=== PATIENT | female | born 1980 | race Caucasian/White ===

== ENCOUNTER → 2025-03-26 10:06 | Outpatient (BNVA) | payer BC, SELFPAY | PROVIDERS: Visit Provider Nurse Practitioner | DX: R30.0 Dysuria (principal); R35.0 Frequency of micturition | CPT/HCPCS: 81000; 87086 ==

== ENCOUNTER 2025-03-31 09:42 | Emergency (ER) | payer BC, SELFPAY ==
[2025-03-31 09:58] VITALS: BP 148/87; PULSE 87; RESP 14; TEMP 36.8; O2SAT 99; BMI 20.1
[2025-03-31 10:05] VITALS: BP 148/87; PULSE 87; RESP 14; O2SAT 99
--- NOTE | 2025-03-31 10:07 | XRR_ITS ---
PROCEDURE INFORMATION: Exam: XR Abdomen Exam date and time: 03/31/2025 10:19 AM Age: 44 years old Clinical indication: Abdominal pain; Prior surgery; Surgery date: 6+ months; Surgery type: Hysterectomy; Abd pain x 1 week; Nausea TECHNIQUE: Imaging protocol: Radiologic exam of the abdomen. Views: 2 Views. Upright and supine views. COMPARISON: No relevant prior studies available. FINDINGS: Gastrointestinal tract: Normal. No bowel dilation. Intraperitoneal space: Normal. No free air. Bones/joints: Unremarkable for age. XR/XR acute abdomen series [id number] IMPRESSION: No acute findings.
[2025-03-31 10:25] LABS: Basophils % 0.4 %; Eosinophils % 0.4 %; Hematocrit 44.7 % (36-47); Lymphocytes # 1.3 10^3/uL (0.8-4.8); Lymphocytes % 19.2 %; Mean Corpuscular HGB Conc 31.5 g/dL (30-55); Mean Corpuscular Hemoglobin 30.9 pg (27-33); Mean Corpuscular Volume 97.8 fl (85-98); Mean Platelet Volume 9.1 fL (7.4-10.4); Monocytes # 0.4 10^3/uL (0.2-0.9); Monocytes % 5.8 %; Neutrophils # 4.92 10^3/uL (1.8-7.7); Neutrophils % 73.9 %; Nucleated Red Blood Cells % 0 %; Platelet Count 327 10^3/cmm (157-399); Red Blood Count 4.57 10^6/uL (3.85-5.65); Red Cell Distribution Width 12.7 % (12.1-15.1); White Blood Count 6.67 10^3/uL (3.29-11.43)
[2025-03-31 10:30] LABS: Bilirubin Urine Negative (Negative); Blood Urine Negative (Negative); Glucose Urine UA Negative (Normal); Ketones Urine Negative (Negative); Leukocyte Esterase Urine Negative (Negative); Nitrate Urine Positive (Negative); Protein Urine Negative (Negative); Specific Gravity, Urine 1.007 (1.005-1.030); Urine Appearance Clear (CLEAR); Urine Color Dark Yellow (Yellow); Urobilinogen Urine 0.2 mg/dL (Negative)
[2025-03-31 10:35] LABS: Add Urine Microscopic? YES; Bacteria Urine None Seen /hpf; Hyaline Casts Urine 0-4 /lpf; RBC Urine 0-2 /hpf (0-2); Squamous Epithelial Cell Urine 0-5 /hpf (0-5); WBC Urine 0-5 /hpf (0-5)
[2025-03-31 10:43] LABS: Alanine Aminotransferase 14 U/L (0-33); Albumin Level 4.6 g/dL (3.5-5.2); Alkaline Phosphatase 46 U/L (35-105); Anion Gap 16.1 (5-19); Aspartate Amino Transferase 16 U/L (0-32); Blood Urea Nitrogen 10 mg/dL (6-20); Calcium 9.7 mg/dL (8.5-10.5); Carbon Dioxide 24 mmol/L (22-29); Chloride 103 mmol/L (98-107); Creatinine Clr Calc Pharmacy 82.6686; Globulin 3.2 g/dL (1.3-4.6); Glomerular Filtration Rate 91.8 mL/min (90-130); Glucose 95 mg/dL (65-115); Lipase 42 U/L (13-60); Osmolality Calculated 287 mOsm/kg (285-295); Potassium 4.1 mmol/L (3.5-5.1); Sodium 139 mmol/L (136-145); Total Bilirubin 0.4 mg/dL (0.15-1.2); Total Protein 7.8 g/dL (6.6-8.7)
[2025-03-31] MEDS: sodium chloride 0.9% 1,000 ML 999 ML IV (10:59)
[2025-03-31 11:00] VITALS: BP 136/81; PULSE 69; O2SAT 97
[2025-03-31] MEDS: ketorolac 30 mg/mL INJ IVP (11:00)
--- NOTE | 2025-03-31 11:09 | PC.NURSE ---
this nurse took over pt care at 1105 from Beth SANTORO.
[2025-03-31 11:30] VITALS: BP 119/74; PULSE 74; O2SAT 92
--- NOTE | 2025-03-31 11:30 | ED_ITS ---
HPI - Female Genitourinary 2 General: Chief complaint: Urogenital-Female Stated complaint: L side pain, frequent urination, burning Time Seen by Provider: 03/31/25 10:00 History of Present Illness: This patient is a 44-year-old white female who presents to the emergency department stating that she noticed some ulcers on her tongue about a week ago and thought she had thrush. She is also had left flank pain and dysuria. She has been evaluated for this several times including in [facility] on at which time she states she had a CT scan which was negative. She has not had a fever. She has had some nausea. No constipation or diarrhea. Past medical history includes fibromyalgia and Raynaud's disease. Related Data Home Medications ?Medication ?Instructions ?Recorded ?Confirmed semaglutide 1 mg/dose (4 mg/3 mL) 1.5 mg SUBCUT Q7D 03/31/25 subcutaneous pen injector acetaminophen 325 mg tablet 650 mg PO QID PRN Fever Or Pain 03/31/25 03/31/25 (Tylenol) clobetasol 0.05 % topical cream 0.05 applic topical TI D 03/31/25 03/31/25 conjugated estrogens 1.25 mg tablet 2 mg PO DAILY 03/1703/31/25 ibuprofen 200 mg tablet (Advil) 400 mg PO Q6H PRN Pain 03/31/25 03/31/25 phenazopyridine 200 mg tablet 200 mg PO TID 03/31/25 0 03/31/25 Previous Rx's ?Medication ?Instructions ?Recorded fluconazole 150 mg tablet 150 mg PO ONCE #1 tab nitrofurantoin 100 mg PO Q12H 5 days #10 ca ps 03/26/25 monohydrate/macrocrystals 100 mg capsule (Macrobid) fluconazole 200 mg tablet 200 mg PO DAILY #3 tabs 03/17 03/10 (Diflucan) Allergies Allergy/AdvReac Type Severity Reaction Status Date / Time Penicillins Allergy Intermediate ALGY-Hives Verified 03/31/25 09:58 watermelon Allergy Intermediate ALGY-Hives Verified 03/31/25 09:58 Sulfa (Sulfonamide Allergy ALGY-Hives Verified 03/31/25 09:58 Antibiotics) ALMONDS Allergy Intermediate ALGY-Hives Uncoded 03/26/25 09:26 Review of Systems 2 General: Reports: 10 or more systems reviewed and unremarkable except in HPI and below ENMT: Reports: oral sores : Reports: flank pain and dysuria PFSH ED 2 PFSH: Social History Smoking and tobacco/nicotine status: never used tobacco/nicotine Physical Exam 2 Const: COMMON NORMALS: no acute distress, patient oriented x3 and no limitations GENERAL APPEARANCE: cooperative and comfortable HENMT: COMMON NORMALS: normocephalic, atraumatic, Normal nasal mucous membranes and turbinates present and moist oral mucous membranes HEAD & SCALP: normal to inspection, normocephalic and atraumatic FACE & SINUS: n ormal facial exam NOSE: Normal nasal mucous membranes and turbinates present OTHER: Some mild erythema along the lateral margins of the tongue. Eye: COMMON NORMALS: Equal, round and reactive pupils present, EOMs intact bilaterally and conjunctivae normal GENERAL EYE: appearance normal, both eyes and all related structures CONJUNCTIVA: Yes conjunctivae normal PUPIL: Yes Equal, round and reactive pupils present Neck/C-Spine: COMMON NORMALS: supple and no JVD Chest: COMMONS NORMALS: normal inspection of the chest Resp: COMMON NORMALS: normal respiratory effort and clear to auscultation bilaterally AUSCULTATION: clear to auscultation bilaterally Cardio: COMMON NORMALS: no JVD, regular rate, regular rhythm, No gallops present (Cardio), No murmurs present (Cardio) and No rub (Cardio) RATE: r egular rate RHYTHM: regular rhythm GI: COMMON NORMALS: Normal to inspection, nondistended, normoactive bowel sounds present, Soft to palpation and non-tender AUSCULTATION: Yes normoactive bowel sounds PALPATION: Yes Soft to palpation Back/Pelvis: COMMON NORMALS: thoracic and lumbar spine normal to inspection OTHER: Mild discomfort to palpation over the left flank. Extremity: COMMON NORMALS: normal to inspection Neuro: COMMON NORMALS: patient oriented x3 and CN's II-XII intact bilaterally Psych: COMMON NORMALS: mental status grossly normal, Normal thought process present and cooperative THOUGHT PROCESS: Normal thought process present Skin: COMMON NORMALS: no rashes or lesions noted, turgor normal and no jaundice GENERAL SKIN EXAM: no rashes or lesions noted and turgor normal Course 2 Vital Signs: Vital signs: Vital Signs Temperature 98.2 F 03/31/25 09:58 Pulse Rate 69 03/31/25 11:00 Respiratory Rate 14 03/31/25 10:05 Blood Pressure 136/81 03/31/25 11:00 Pulse Oximetry 97 03/31/25 11:00 MDM - Female Medical Decision Making CBC, CMP and lipase were normal. Urine analysis was normal. Chest x-ray normal. Abdominal flatplate and upright films were normal. I did place the patient on Diflucan to see if that helps with the tongue lesions. Her flank pain may be more musculoskeletal which I discussed with her. I recommended she follow-up with her primary care provider for ongoing management workup. She was discharged in stable condition. Lab Data 03/31/25 10:02 03/31/25 10:02 Radiology Impressions Chest/Abdomen X-ray 03/31/25 10:07 IMPRESSION: No acute findings. Laboratory Results WBC 6.67 10^3/uL (3.29-11.43) 03/31/25 10:02 RBC 4.57 10^6/uL (3.85-5.65) 03/31/25 10:02 Hgb 14.10 g/dL (11.27-16.99) 03/31/25 10:02 Hct 44.7 % (36-47) 03/31/25 10:02 MCV 97.8 fl (85-98) 03/31/25 10:02 MCH 30.9 pg (27-33) 03/31/25 10:02 MCHC 31.5 g/dL (30-55) 03/31/25 10:02 RDW 12.7 % (12.1-15.1) 03/31/25 10:02 Plt Count 327 10^3/cmm (157-399) 03/31/25 10:02 MPV 9.1 fL (7.4-10.4) 03/31/25 10:02 Neut % (Auto) 73.9 % 03/31/25 10:02 Lymph % (Auto) 19.2 % 03/31/25 10:02 [place] % (Auto) 5.8 % 03/31/25 10:02 Eos % (Auto) 0.4 % 03/31/25 10:02 Baso % (Auto) 0.4 % 03/31/25 10:02 Neut # (Auto) 4.92 10^3/uL (1.8-7.7) 03/31/25 10:02 Lymph # (Auto) 1.3 10^3/uL (0.8-4.8) 03/31/25 10:02 [place] # (Auto) 0.4 10^3/uL (0.2-0.9) 03/31/25 10:02 Eos # (Auto) 0.0 10^3/uL (0.0-0.8) 03/31/25 10:02 Baso # (Auto) 0.0 10^3/uL (0.0-0.1) 03/31/25 10:02 Nucleated RBC % (auto) 0 % 03/31/25 10:02 Nucleated RBCs # 0.0 /100WBC 03/31/25 10:02 Sodium 139 mmol/L (136-145) 03/31/25 10:02 Potassium 4.1 mmol/L (3.5-5.1) 03/31/25 10:02 Chloride 103 mmol/L (98-107) 03/31/25 10:02 Carbon Dioxide 24 mmol/L (22-29) 03/31/25 10:02 Anion Gap 16.1 (5-19) 03/31/25 10:02 BUN 10 mg/dL (6-20) 03/31/25 10:02 Creatinine 0.7 mg/dL (0.5-0.9) 03/31/25 10:02 GFR Calculation 91.8 mL/min (90-130) 03/31/25 10:02 Glucose 95 mg/dL (65-115) 03/31/25 10:02 Calculated Osmolality 287 mOsm/kg (285-295) 03/31/25 10:02 Calcium 9.7 mg/dL (8.5-10.5) 03/31/25 10:02 Total Bilirubin 0.4 mg/dL (0.15-1.2) 03/31/25 10:02 AST 16 U/L (0-32) 03/31/25 10:02 ALT 14 U/L (0-33) 03/31/25 10:02 Alkaline Phosphatase 46 U/L (35-105) 03/31/25 10:02 Total Protein 7.8 g/dL (6.6-8.7) 03/31/25 10:02 Albumin 4.6 g/dL (3.5-5.2) 03/31/25 10:02 Globulin 3.2 g/dL (1.3-4.6) 03/31/25 10:02 Lipase 42 U/L (13-60) 03/31/25 10:02 Urine Color Dark yellow (Yellow) A 03/31/25 10:09 Urine Appearance Clear (CLEAR) 03/31/25 10:09 Urine pH 7.0 (5-7) 03/31/25 10:09 Ur Specific [place] 1.007 (1.005-1.030) 03/31/25 10:09 Urine Protein Negative (Negative) 03/31/25 10:09 Urine Glucose (UA) Negative (Normal) 03/31/25 10:09 Urine Ketones Negative (Negative) 03/31/25 10:09 Urine Blood Negative (Negative) 03/31/25 10:09 Urine Nitrate Positive (Negative) A 03/31/25 10:09 Urine Bilirubin Negative (Negative) 03/31/25 10:09 Urine Urobilinogen 0.2 mg/dL (Negative) 03/31/25 10:09 Ur Leukocyte Esterase Negative (Negative) 03/31/25 10:09 Urine RBC 0-2 /hpf (0-2) 03/31/25 10:09 Urine WBC 0-5 /hpf (0-5) 03/31/25 10:09 Ur Squamous Epith Cells 0-5 /hpf (0-5) 03/31/25 10:09 Amorphous Sediment Not Reportable 03/31/25 10:09 Urine Bacteria None seen /hpf (NONE) 03/31/25 10:09 Hyaline Casts 0-4 /lpf H 03/31/25 10:09 All radiology interpretation(s) finalized by discharge Discharge Plan Discharge Patient Disposition: Home Clinical Impression: Acute flank pain, Oral thrush Condition: Stable Prescriptions: New fluconazole [Diflucan] 200 mg tablet 200 mg PO DAILY Qty: 3 0RF No Action semaglutide 1 mg/dose (4 mg/3 mL) pen injector 1.5 mg SUBCUT Q7D fluconazole 150 mg tablet 150 mg PO ONCE Qty: 1 0RF nitrofurantoin monohyd/m-cryst [Macrobid] 100 mg capsule 100 mg PO Q12H 5 Days Qty: 10 0RF Rx Instructions: must administer with a meal/food acetaminophen [Tylenol] 325 mg Tablet 650 mg PO QID PRN (Reason: Fever Or Pain) phenazopyridine 200 mg tablet 200 mg PO TID clobetasol 0.05 % cream 0.05 applic TOPICAL TID ibuprofen [Advil] 200 mg Tablet 400 mg PO Q6H PRN (Reason: Pain) conjugated estrogens 1.25 mg Tablet 2 mg PO DAILY Discharge Orders: Discharge ED (Routine); Ordered 03/31/25 Ordered By: Brigido Ybarra Patient Instructions: Flank Pain Activity Restrictions/Additional Instructions: Follow-up with your primary care provider for further workup. Print Language: Bahraini Coding Level of Care Code ED Observer [employer] for Efraín Pennington
--- NOTE | 2025-03-31 11:56 | PC.NURSE ---
pt up for discharge, finishing iv fluids before dc.
[2025-03-31 12:02] VITALS: BP 131/69; PULSE 77; O2SAT 100
== END 2025-03-31 12:05 | disposition home or self-care (01) ==
PROVIDERS: Emergency Medicine; Emergency Provider Emergency Medicine
DX: B37.0 Candidal stomatitis (principal); R10.9 Unspecified abdominal pain
CPT/HCPCS: 74022; 80053; 81001; 83690; 85025; 96361; 96374; 99284; J1885; J7030